=== PATIENT | female | born 1965 | race Caucasian/White ===

== ENCOUNTER 2019-11-23 10:35 | Emergency (ER) | payer MEDICAID ==
[~2019-11-23] VITALS: Ht 172.7 cm; Wt 69.9 kg
[~2019-11-23 10:35] MED LIST: ALBU0.0939; SULF-59; VIC
[2019-11-23 10:42] VITALS: BP 124/64
--- NOTE | 2019-11-23 10:49 | NUR ---
PATIENT AMBULATED WITH STEADY GAIT TO BED 8.
--- NOTE | 2019-11-23 10:52 | NUR ---
C/O L SIDED RIB PAIN X2 WEEKS. 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 REACHED OVER FOR SOMETHING 2 WKS AGO AND FELT A SHARP PAIN TO AFFECTED AREA. ALSO HAD COLD SYMPTOMS AND WAS "COUGHING A LOT". O2 SAT RA 98%. HURTS WORSE WHEN TAKING A DEEP BREATH. LT ANTERIOLATERAL CHEST UNDER THE BREAST TTP. HX: OSTEOARTHRITIS, ASTHMA RX: MOTRIN 800MG, ALBUTEROL
[2019-11-23] MEDS ORDERED: KETOROLAC 60 MG/2 ML VIAL IM ONE (10:55)
--- NOTE | 2019-11-23 12:14 | NUR ---
DR HAMMOND EVALUATING PT AT BEDSIDE
[2019-11-23 12:24] VITALS: BP 124/64
--- NOTE | 2019-11-23 12:24 | NUR ---
Patient discharged with v/s stable. Written and verbal after care instructions given and explained. Patient alert, oriented and verbalized understanding of instructions. Ambulatory with steady gait. All questions addressed prior to discharge. ID band removed. Patient advised to follow up with PMD. Rx of NORCO, MOTRIN, PREDNISONE given. Patient educated on indication of medication including possible reaction and side effects. Opportunity to ask questions provided and answered.
== END 2019-11-23 12:24 | disposition home or self-care (01) ==
LOC: MED 10:35
DX: R07.89 Other chest pain (principal); J45.909 Unspecified asthma, uncomplicated; F17.210 Nicotine dependence, cigarettes, uncomplicated; Z88.0 Allergy status to penicillin; Z79.899 Other long term (current) drug therapy; Z98.890 Other specified postprocedural states
CPT/HCPCS: 96372; 99283; J1885

== ENCOUNTER 2022-09-22 18:37 | Emergency (ER) | payer MEDICAID ==
[~2022-09-22] VITALS: Ht 170.2 cm; Wt 62.4 kg
[2022-09-22 18:44] VITALS: BP 143/83
--- NOTE | 2022-09-22 19:43 | NUR ---
CUSTOMER ASSOCIATE CALLED PT IN LOBBY NO ANSWER.
--- NOTE | 2022-09-22 20:44 | NUR ---
2ND ATTEMPT BY [facility]RADO TO CALL PT, NO ANSWER
--- NOTE | 2022-09-22 22:45 | NUR ---
DR LONG CALLED PT WITH NO ANSWER.
--- NOTE | 2022-09-22 23:01 | NUR ---
PATIENT LEFT WITHOUT BEING SEEN BY DR. LONG. NO FURTHER CARE PROVIDED FOR PATIENT.
== END 2022-09-22 22:45 | disposition left against medical advice (07) ==
LOC: MED 18:37
DX: M25.521 Pain in right elbow (principal); Z53.21 Procedure and treatment not carried out due to patient leaving prior to being seen by health care provider

== ENCOUNTER 2022-09-24 02:52 | Emergency (ER) | payer MEDICAID ==
[~2022-09-24] VITALS: Ht 170.2 cm; Wt 62.6 kg
[2022-09-24 03:09] VITALS: BP 139/73
--- NOTE | 2022-09-24 03:17 | NUR ---
PT TAKEN TO BED 4
--- NOTE | 2022-09-24 03:20 | NUR ---
PT AMBULATED TO ED 4, PT C/O RIGHT SIDED RIB AND RIGHT ELBOW PAIN. PT FELL OFF A LADDER 4.5 FT HIGH ON 10/19 ONTO THE LAMINATE FLOOR, DENIES LOC, ELBOW RED, NO SWELLING VISIBLE. PT STATES IT HURTS TO TAKE A BIG BREATH IN. CAME IN YESTERDAY BUT LEFT BECAUSE IT WAS A LONG WAIT. DENIES ANY MEDICAL HISTORY.
--- NOTE | 2022-09-24 03:36 | NUR ---
X-Ray at bedside.
[2022-09-24] MEDS ORDERED: KETOROLAC 30 MG/ML VIAL IM ONE (04:45)
--- NOTE | 2022-09-24 05:00 | NUR ---
PT RESTING IN BED, NO DISTRESS OBSERVED.
--- NOTE | 2022-09-24 05:03 | NUR ---
Dr. Valle examining patient.
[2022-09-24] MEDS ORDERED: LID5T TP (05:18)
[2022-09-24] MEDS ORDERED: ACET-8386 PO (05:18)
[2022-09-24] MEDS ORDERED: NAPR-54 PO (05:18)
[2022-09-24 05:33] VITALS: BP 136/64
--- NOTE | 2022-09-24 05:34 | NUR ---
Patient discharged with v/s stable. Written and verbal after care instructions given and explained. Patient alert, oriented and verbalized understanding of instructions. Ambulatory with steady gait. All questions addressed prior to discharge. ID band removed. Patient advised to follow up with PMD. Rx SENT TO PHARMACY. Patient educated on indication of medication including possible reaction and side effects. Opportunity to ask questions provided and answered.
== END 2022-09-24 05:34 | disposition home or self-care (01) ==
LOC: MED 02:52
DX: S20.211A Contusion of right front wall of thorax, initial encounter (principal); J45.909 Unspecified asthma, uncomplicated; F17.210 Nicotine dependence, cigarettes, uncomplicated; Z90.49 Acquired absence of other specified parts of digestive tract; Z79.899 Other long term (current) drug therapy; Z79.891 Long term (current) use of opiate analgesic; Z79.2 Long term (current) use of antibiotics; Z79.1 Long term (current) use of non-steroidal anti-inflammatories (NSAID); Z88.0 Allergy status to penicillin; W11.XXXA Fall on and from ladder, initial encounter; Y93.89 Activity, other specified; Y92.89 Other specified places as the place of occurrence of the external cause; Y99.8 Other external cause status
CPT/HCPCS: 71045; 96372; 99283; J1885; Q0092

== ENCOUNTER 2023-06-29 23:45 | Emergency (ER) | payer MEDICAID ==
[~2023-06-29] VITALS: Ht 170.2 cm; Wt 63.5 kg
[~2023-06-29 23:45] MED LIST changes: +ACET-8905 PO; +LID5T TP; +NAPR-54 PO
[2023-06-30 00:04] VITALS: BP 124/78; PULSE 86; RESP 17; TEMP 97.8; O2SAT 98
--- NOTE | 2023-06-30 00:04 | NUR ---
PT WENT TO BED 11
--- NOTE | 2023-06-30 00:07 | NUR ---
TO LOBBY A/W BED AMBULATORY
--- NOTE | 2023-06-30 02:02 | NUR ---
XRAY AT BEDSIDE
[2023-06-30] MEDS ORDERED: IBUP-2213 PO (02:43)
[2023-06-30] MEDS ORDERED: LID5T TP (02:43)
[2023-06-30] MEDS ORDERED: ACET-10509 PO (02:43)
[2023-06-30] MEDS ORDERED: HYDROcodone/APAP 10/325 MG 1 TAB TAB PO ONE (02:45)
--- NOTE | 2023-06-30 02:48 | NUR ---
DR EXAMINING THE PATIENT
[2023-06-30 02:58] VITALS: BP 124/78; PULSE 86; RESP 17; TEMP 97.8; O2SAT 98
--- NOTE | 2023-06-30 03:08 | NUR ---
Patient discharged with v/s stable. Written and verbal after care instructions given and explained. Patient alert, oriented and verbalized understanding of instructions. Ambulatory with steady gait. All questions addressed prior to discharge. ID band removed. Patient advised to follow up with PMD. Rx of LIDOCAINE, TYLENOL AND IBUPROFEN given. Patient educated on indication of medication including possible reaction and side effects. Opportunity to ask questions provided and answered.
== END 2023-06-30 03:08 | disposition home or self-care (01) ==
LOC: MED 23:45
DX: S20.212A Contusion of left front wall of thorax, initial encounter (principal); J45.909 Unspecified asthma, uncomplicated; Z88.0 Allergy status to penicillin; X58.XXXA Exposure to other specified factors, initial encounter; Y93.89 Activity, other specified; Y92.89 Other specified places as the place of occurrence of the external cause; Y99.8 Other external cause status
CPT/HCPCS: 71045; 99283; Q0092